=== PATIENT | male | born 1990 | race Two or more races ===

== ENCOUNTER 2024-12-01 09:54 | Emergency (ER) | payer MEDICAID, OTHER ==
[~2024-12-01] VITALS: Ht 167.6 cm; Wt 70.9 kg
--- NOTE | 2024-12-01 11:18 | ED.PDOC ---
General HPI Comments A 34-year-old male presents to the ED complaining of bilateral testicle pain. Patient reports he has been experiencing bilateral testicular pain that started in his right testicle and then radiated to in his left testicle off and on for the past 2-3 weeks. Patient reports he noticed a small lump on his right testicle 2-3 weeks ago and notes this lump is mildly tender to the touch. Symptoms rated as mild/moderate and has not tried OTC medications. Denies fevers chills night sweats Denies pelvic pain Denies nausea vomiting diarrhea Denies dysuria urgency frequency Denies history of UTI Denies blood in the urine or semen Denies recent instruments/toys and urethra Denies current tobacco use Denies family history of prostate issues Chief Complaint: Testicle Pain Time Seen by MD: 11:09 Reviewed notes: Nurses Notes, Medications, Allergies Allergies: Coded Allergies: NO KNOWN ALLERGIES (Unverified , 12/01/24) Information Source: Patient Mode of Arrival: Ambulatory Severity: Moderate Inability to void: None Timing: Weeks Duration: Since onset Prehospital treatment: None Onset: Spontaneous Symptoms: None History of: None Location: Suprapubic Location male: R Scrotum, L Scrotum Penile discharge: None Modifying factors: None associated signs and symptoms: None Past Medical History PAST MEDICAL HISTORY: Denies Surgical History: Denies all surgeries Family History Family History: Reviewed,noncontributory to illness Social History Smoker: Non-Smoker Alcohol: Denies ETOH Use Drugs: Denies Drug Use Lives In: Home Constitutional: denies: chills, diaphoresis, fatigue, fever, malaise, sweats, weakness, others EENTM: denies: blurred vision, double vision, ear bleeding, ear discharge, ear drainage, ear pain, ear ringing, eye pain, eye redness, hearing loss, mouth pain, mouth swelling, nasal discharge, nose bleeding, nose congestion, nose pain, photophobia, tearing, throat pain, throat swelling, voice changes, others Respiratory: denies: cough, hemoptysis, orthopnea, SOB at rest, shortness of breath, SOB with excertion, stridor, wheezing, others Cardiovascular: denies: chest pain, dizzy spells, diaphoresis, Dyspnea on exertion, edema, irregular heart beat, left arm pain, lightheadedness, palpitations, PND, syncope, others Gastrointestinal: denies: abdomen distended, abdominal pain, blood streaked bowels, constipated, diarrhea, dysphagia, difficulty swallowing, hematemesis, melena, nausea, poor appetite, poor fluid intake, rectal bleeding, rectal pain, vomiting, others Genitourinary: reports: testicle pain; denies: burning, dysuria, flank pain, frequency, hematuria, incontinence, penile discharge, penile sore, pain, testicle swelling, urgency, others Neurological: denies: dizziness, fainting, headache, left sided numbness, left sided weakness, numbness, paresthesia, pre-existing deficit, right sided numbness, right sided weakness, seizure, speech problems, tingling, tremors, weakness, others Musculoskeletal: denies: back pain, gout, joint pain, joint swelling, muscle pain, muscle stiffness, neck pain, others Integumetry: denies: bruises, change in color, change in hair/nails, dryness, laceration, lesions, lumps, rash, wounds, others Allergic/Immunocompromised: denies: Difficulty Healing, Frequent Infections, Hives, Itching, others Hematologic/Lymphatic: denies: anemia, blood clots, easy bleeding, easy bruising, swollen glands, others Endocrine: denies: excessive hunger, excessive sweating, excessive thirst, excessive urination, flushing, intolerance to cold, intolerance to heat, unexplained weight gain, unexplained weight loss, others Psychiatric: denies: anxiety, bipolar disorder, depression, hopeless, panic disorder, schizophrenia, sleepless, suicidal, others All Other Systems: Reviewed and Negative Physical Exam General Appearance: No Apparent Distress, Normal HEENT: Normal ENT Inspection, Pharynx Normal, TMs Normal Neck: Full Range of Motion, Non-Tender, Normal, Normal Inspection Respiratory: Chest Non-Tender, Lungs Clear, No Accessory Muscle Use, No Respiratory Distress, Normal Breath Sounds Cardiovascular: No Edema, No JVD, No Murmur, No Gallop, Normal Peripheral Pulses, Regular Rate/Rhythm Breast Exam: Deferred Gastrointestinal: No Organomegaly, Non Tender, No Pulsatile Mass, Normal Bowel Sounds, Soft Genitalia: Testicle (No high riding testcile noted. No erythema noted. No TTP noted.), Normal Pelvic: Deferred Rectal: Deferred Extremities: No calf tenderness, Normal capillary refill, Normal inspection, Normal range of motion, Non-tender, No pedal edema Musculoskeletal : Apperance: Normal Neurologic: Alert, nozzle operator II-XII nml as Tested, No Motor Deficits, Normal Affect, Normal Mood, No Sensory Deficits Cerebellar Function: Normal Reflexes: Normal Skin: Dry, Normal Color, Warm Lymphatic: No Adenopathy Was a procedure done? Was a procedure done?: No Differential Diagnosis Kidney stone (Female): N/A Kidney stone (Male): N/A Penile/Scrotal: Epidiymitis, STD, UTI, Hydrocele, Testicular Torsion, Urolithiasis Urinary Problem (Male): N/A Urinary Problem (Female): N/A X-Ray, Labs, Meds, VS Vital Signs Date Time Temp Pulse Resp B/P (MAP) Pulse Ox O2 Delivery O2 Flow Rate FiO2 12/01/24 12:23 97.4 55 16 115/68 (84) 98 97.4 12/01/24 12:23 55 16 98 Room Air 12/01/24 10:54 97.7 58 18 125/75 (92) 98 97.7 Lab Test 12/01/24 11:36 12/01/24 10:48 Range/Units White Blood Count 7.0 4.4-10.8 10^3/uL Red Blood Count 4.88 4.5-5.90 10^6/uL Hemoglobin 14.7 13.5-17.5 g/dL Hematocrit 42.7 41.0-53.0 % Mean Corpuscular Volume 87.5 80.0-100.0 fL Mean Corpuscular Hemoglobin 30.1 28.0-32.0 pg Mean Corpuscular Hemoglobin Concent 34.4 32.0-36.0 g/dL Red Cell Distribution Width 12.8 11.8-14.3 % Platelet Count 307 140-450 10^3/uL Mean Platelet Volume 7.2 6.9-10.8 fL Neutrophils (%) (Auto) 51.0 37.0-80.0 % Lymphocytes (%) (Auto) 37.1 10.0-50.0 % Monocytes (%) (Auto) 10.6 0.0-12.0 % Eosinophils (%) (Auto) 1.0 0.0-7.0 % Basophils (%) (Auto) 0.3 0.0-2.0 % Neutrophils # (Auto) 3.6 1.6-8.6 10 ^3/uL Lymphocytes # (Auto) 2.6 0.4-5.4 10 ^3/uL Monocytes # (Auto) 0.7 0-1.3 10 ^3/uL Eosinophils # (Auto) 0.1 0-0.8 10 ^3/uL Basophils # (Auto) 0 0-0.2 10 ^3/uL Nucleated Red Blood Cells 0.1 % Sodium Level 140 136-145 mmol/L Potassium Level 4.0 3.5-5.1 mmol/L Chloride Level 105 98-107 mmol/L Carbon Dioxide Level 31 20-31 mmol/L Anion Gap 4 L 5-15 Blood Urea Nitrogen 7 L 9-23 mg/dL Creatinine 0.91 0.700-1.30 mg/dL Glomerular Filtration Rate Calc 112 >90 mL/min BUN/Creatinine Ratio 7.7 L 10.0-20.0 Serum Glucose 101 74-106 mg/dL Calcium Level 9.9 8.7-10.4 mg/dL Urine Color Light-yellow Yellow Urine Clarity Turbid H Clear Urine pH 8.0 5.0-9.0 Urine Specific [place] 1.013 1.001-1.035 Urine Protein Negative Negative Urine Ketones Negative Negative Urine Blood Negative Negative /uL Urine Nitrite Negative Negative Urine Bilirubin Negative Negative Urine Urobilinogen Normal Negative mg/dL Urine Leukocyte Esterase Negative Negative /uL Urine RBC None seen 0 - 3 /hpf Urine Microscopic WBC 1 0-3 /HPF Urine Squamous Epithelial Cells None seen <5 /hpf Urine Bacteria None seen None Seen /hpf Urine Glucose Normal Normal mg/dL Chlamydia trachomatis (ALEX) Pending Neisseria gonorrhoeae (ALEX) Pending PATIENT: ABNER SCHRADER,SERGIOACCT: [id number]: [id number] : 1990 LOC: ER ROOM / BED: / AGE / SEX: 34 / M ADM STATUS: REG ER SERVICE 1123 ORDERING PHYSICIAN: DORON COREAS NP PROCEDURE(s): TESUS - TESTICULAR ULTRASOUND REASON: Testicular pain ORDER NUMBER(s): [id number], ACCESSION NUMBER(s): [id number] EXAM: US TESTICULAR ULTRASOUND HISTORY: Testicular pain COMPARISON: None TECHNIQUE: Scrotal ultrasound was performed. FINDINGS: The right testicle measures 3.9 x 2.3 x 2.7 cm. The left testicle measures 3.9 x 2.6 x 2.5 cm. No testicular masses, cystic lesions, abnormal color Doppler blood flow, or suspicious calcifications are identified bilaterally. There is a left testicular capsular calcification. No abnormal color Doppler blood flow is identified in the bilateral epididymi. There is a right epididymal cyst measuring 2.2 cm. There is a small left hydrocele. No right hydrocele. No evidence of varicocele with the patient performing Valsalva maneuver. IMPRESSION: 1. No sonographic evidence of testicular mass, epididymitis, or orchitis. 2. 2.2 cm right epididymal head cyst. 3. Small left hydrocele. ATED BY: LUIS HAMILTON MD DICTATED DATE/TIME: 12/01/241224 SIGNED BY: LUIS HAMILTON MD SIGNED DATE/TIME: 12/01/24 1225 X-Ray, Labs, Meds, VS Comment A 34-year-old male presents to the ED complaining of bilateral testicle pain for the past 2-3 weeks. Patient arrives alert and oriented, ABC's intact, afebrile, vital signs stable, saturating well in room air Peripheral IV insertion+ labs were ordered. Urinalysis was ordered to rule out UTI or hematuria. CBC BMP Chlamydia/GC amplification Differentials considered but not limited to: Scrotal cellulit Epididymitis Mary gangrene Hematocele Hydrocele US ordered. Patient is hemodynamically stable therefore scrotal cellulitis is less likely. No gross abnormality on physical therefore Mary gangrene is less likely on the differential. Diagnostic imaging ordered by me and results interpreted by radiology : US gen/scrotum: [IMPRESSION: 1. No sonographic evidence of testicular mass, epididymitis, or orchitis.2. 2.2 cm right epididymal head cyst.3. Small left hydrocele. ] On reevaluation, patient had symptomatic improvement. Patient is stable for discharge at this time. External notes reviewed. Test results and diagnostic imaging interpreted. All diagnostic findings, discharge care, education and instructions provided Follow-up with PCP in 2 to 3 days Patient verbalized understanding and agreed to treatment plan Vital signs stable, afebrile, no acute distress noted Patient ambulatory with strong steady gait Advised to return precautions for any new or worsening symptoms, return to ER immediately for re-evaluation Patient is aware that the purpose of this visit was for an acute medical emergency requiring emergent stabilization. Chronic conditions, including malignancies have not been ruled out. Patient is instructed to follow up with PCP as directed and discharge instructions for continued care and workup. If unable to arrange follow-up, patient is to return to the emergency department for reassessment. Patient (parent or legal guardian if applicable) was given verbal and written discharge instructions and acknowledges understanding. Additional MDM Review of External, Non-ED records: External records reviewed. Discussion with independent historian history obtained from the patient Chronic conditions affecting care: None Social determinants of health affecting care: None Consideration of admission (observation or admission): I considered escalation of care to admission for this patient, however given the reassuring workup, the patient is safe for outpatient management. Discussion with the Radiology: No Tests considered but not performed: None Prescription medication considered but not given: None Images Reviewed?: Images reviewed and evaluated by me Time of 1ST Reevaluation: 13:00 Reevaluation 1ST: Improved Patient Education/Counseling: Diagnosis, Treatment, Need For Follow Up Family Education/Counseling: Diagnosis, Treatment, Need For Follow Up SEPSIS Sepsis Screen Date sepsis recognized/suspect: Dec 01, 2024 Time Sepsis recognized/suspect: 1046 Recent Procedure: No On Antibiotic Therapy: No Respiratory Rate >20: No Heart Rate >90: No Temp<36 C (96.8 F) or >38.3 C: No SBP <90 or MAP <65 mmHG: No New Acute Mental Status Change: No Is the patient on CPAP, BIPAP,: No Physician Orders Chlamydia/Gc Amplification (12/01/24 11:23) Testicular Ultrasound (12/01/24 11:23) Vital Signs Date Time Temp Pulse Resp B/P (MAP) Pulse Ox O2 Delivery O2 Flow Rate FiO2 12/01/24 12:23 97.4 55 16 115/68 (84) 98 97.4 12/01/24 12:23 55 16 98 Room Air 12/01/24 10:54 97.7 58 18 125/75 (92) 98 97.7 Laboratory Tests Test 12/01/24 11:36 White Blood Count 7.0 10^3/uL (4.4-10.8) Departure 1 Departure Time of Disposition: 13:20 Impression: Primary Impression: Epididymal cyst Additional Impression: Left hydrocele Disposition: HOME / SELF CARE / HOMELESS Condition: Stable Additional Instructions: Follow up with PCP in 1-2 days. Take medications as prescribed. Return to the ED for any new or worsening symptoms. Discharged With: Self Critical Care Note Critical Care Time?: No Stability Stability form required: No Heart Score Heart Score: Heart Score Response (Comments) Value History N/A 0 EKG N/A 0 Age N/A 0 Risk Factors N/A 0 Troponin N/A 0 Total 0 I personally scribed for DORON COREAS LOAN AND CREDIT MANAGER ([email or web address]) on 12/01/24 at 11:18. Electronically submitted by Jorge Whaley ([email or web address]). I personally scribed for DORON COREAS LOAN AND CREDIT MANAGER ([email or web address]) on 12/01/24 at 11:24. Electronically submitted by Jorge Whaley ([email or web address]). I personally scribed for DORON COREAS LOAN AND CREDIT MANAGER ([email or web address]) on 12/01/24 at 13:10. Electronically submitted by Jorge Whaley ([email or web address]). I personally scribed for DORON COREAS LOAN AND CREDIT MANAGER ([email or web address]) on 12/01/24 at 13:22. Electronically submitted by Jorge Whaley ([email or web address]). DORON COREAS NP Dec 01, 2024 11:18
[2024-12-01 12:02] LABS: Hematocrit 42.7 % (41.0-53.0); Hemoglobin 14.7 g/dL (13.5-17.5); Mean Corpuscular Hemoglobin 30.1 pg (28.0-32.0); Mean Corpuscular Volume 87.5 fL (80.0-100.0); Nucleated Red Blood Cells % 0.1 %
[2024-12-01 12:07] LABS: Chloride 105 mmol/L (98-107); Potassium 4.0 mmol/L (3.5-5.1); Sodium 140 mmol/L (136-145)
[2024-12-01 12:08] LABS: Anion Gap 4 (5-15); Carbon Dioxide 31 mmol/L (20-31)
[2024-12-01 12:09] LABS: Calcium 9.9 mg/dL (8.7-10.4)
[2024-12-01 12:13] LABS: BUN/Creatinine Ratio 7.7 (10.0-20.0); Glucose 101 mg/dL (74-106)
[2024-12-01 12:14] LABS: Urine Protein, UAD Negative (Negative)
[2024-12-01 12:15] LABS: Blood Urea Nitrogen 7 mg/dL (9-23)
[2024-12-01 12:23] VITALS: BP 115/68; PULSE 55; RESP 16; TEMP 97.4; O2SAT 98
--- NOTE | 2024-12-01 12:28 | DVH ---
EXAM: US TESTICULAR ULTRASOUND HISTORY: Testicular pain COMPARISON: None TECHNIQUE: Scrotal ultrasound was performed. FINDINGS: The right testicle measures 3.9 x 2.3 x 2.7 cm. The left testicle measures 3.9 x 2.6 x 2.5 cm. No t esticular masses, cystic lesions, abnormal color Doppler blood flow, or suspicious calcifications are identified bilaterally. There is a left testicular capsular calcification. No abnormal color Doppler blood flow is identified in the bilateral epididymi. There is a right epididymal cyst measuring 2.2 cm. There is a small left hydrocele. No right hydrocele. No evidence of varicocele with the patient performing Valsalva maneuver. IMPRESSION: 1. No sonographic evidence of testicular mass, epididymitis, or orchitis. 2. 2.2 cm right epididymal head cyst. 3. Small left hydrocele.
== END 2024-12-01 13:38 | disposition home or self-care (01) ==
LOC: ER 09:54
DX: N43.3 Hydrocele, unspecified (principal); N50.3 Cyst of epididymis
CPT/HCPCS: 36415; 76870; 80048; 81001; 85025